=== PATIENT | female | born 1995 | race African-American/Black ===

== ENCOUNTER → 2016-09-29 | Outpatient (CLI) | payer OTHER ==
--- NOTE | 2016-09-29 09:50 | KCIC ---
Bilateral breast ultrasound: Reason for examination: Followup nodules. Comparison is made to previous study dated 02/25/2015. Ultrasound examination was performed bilaterally. The right breast continues to show a hypoechoic circumscribed lesion in parallel orientation at the 6 o'clock position with some posterior acoustic enhancement. 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 This lesion appears to measure 1.9 x 2.4 centimeters in greatest dimension. This shows minimal change. No other focal right breast lesions are seen. No abnormal lymph nodes are seen in the right axilla. The left breast continues to show a 7.4 millimeter lesion consistent with an intramammary lymph node at the 6 o'clock position 4 centimeters from the nipple which has not changed. There also continues to be a 3.5 x 1.3 x 2.8 centimeter lesion present in the 8 o'clock position 4 centimeters from the nipple. This shows some intra lesional hypoechoic areas consistent with possible areas of cystic necrosis. No other focal left breast lesions are seen. No abnormal appearing lymph nodes are seen in the left axilla. Impression: No significant interval change in the right breast lesion at the 6 o'clock position. No apparent change in the lymph node at the 6 o'clock position of the left breast. Slight increase in size of the lesion at the 8 o'clock position of the left breast showing areas of decrease echogenicity within the nodule which may represent cystic necrosis. This probably represents a fibroadenoma however close followup with revaluation with ultrasound in 6 months is recommended to evaluate stability. BI-RADS category 3: Probably benign. This patient's information has been entered into a reminder system for the patient to be notified with the results of this examination and a target date for her next mammograms. Electronically signed by: Joya Higuera MD (Sep 29, 2016 09:48:22)
== END | disposition home or self-care (01) ==
LOC: KCIC US 07:55
PROVIDERS: ATTEND Obstetrics & Gynecology
DX: D24.2 Benign neoplasm of left breast (principal); D24.1 Benign neoplasm of right breast; N63 Unspecified lump in breast
CPT/HCPCS: 76641

== ENCOUNTER → 2017-11-27 | Outpatient (CLI) | payer OTHER | END | disposition home or self-care (01) | LOC: KCIC US 09:51 | DX: N63.24 Unspecified lump in the left breast, lower inner quadrant (principal) | CPT/HCPCS: 76641 ==